=== PATIENT | female | born 1955 | race Caucasian/White ===

== ENCOUNTER 2019-05-26 12:00 | Emergency (ER) | payer BC ==
--- NOTE | 2019-05-26 12:13 | Emergency Department Record ---
History of Present Illness - General Chief Complaint: Arrythmia/Palpitations Stated Complaint: IRREGUALR HEARTBEAT Time Seen by Provider: 05/26/19 12:06 Source: Patient Mode of Arrival: Ambulatory Limitations: No limitations - History of Present Illness Initial Comments: 63 yo female presents with palpitations and irregular heart beat. She first noticed it at 2am. She does feel mild lightheadedness and mild shortness of breath. No syncope. No chest pain. No leg pain or edema. She states about 4 years ago she had atrial fibrillation that converted on its own. She was briefly on Eliquis but stopped when in sinus rhythm and had nose bleeds. She is not currently anti-coagulated. 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 No other recent changes in her health. She drove herself to the ED MD Complaint: Atrial fibrillation, Irregular heart beat, Palpitations -: Hour(s) Context: Occurred during rest Arrythmia History: Atrial fibrillation Associated Symptoms: Shortness of breath, Other (lightheaded) - Related Data Home Medications Medication Instructions Recorded Confirmed Last Taken Atenolol 25 mg PO BID 05/26/19 05/26/19 05/26/19 Atomoxetine HCl [Strattera] 10 mg PO DAILY 05/26/19 05/26/19 05/26/19 Bupropion HCl [Wellbutrin Xl] 150 mg PO DAILY 05/26/19 05/26/19 05/26/19 Lisinopril/Hydrochlorothiazide 1 each PO DAILY 05/26/19 05/26/19 05/26/19 [Lisinopril-Hctz 20-12.5 mg Tab] Allergies Allergy/AdvReac Type Severity Reaction Status Date / Time codeine AdvReac VOMITING Verified 05/26/19 12:20 Review of Systems Constitutional: Denies: Chills, Fever, Malaise, Weakness Eyes: Denies: Eye discharge ENT: Denies: Congestion, Throat pain Respiratory: Reports: Dyspnea (mild). Denies: Cough, Hemoptysis, Stridor, Wheezes Cardiovascular: Reports: Palpitations. Denies: Chest pain, Dyspnea on exertion, Edema, Syncope Endocrine: Denies: Fatigue, Polydipsia, Polyuria Gastrointestinal: Denies: Abdominal pain, Diarrhea, Nausea, Vomiting Genitourinary: Denies: Dysuria, Urgency Musculoskeletal: Denies: Arthralgia, Back pain, Joint swelling, Myalgia Skin: Denies: Bruising, Change in color, Rash Neurological: Denies: Abnormal gait, Headache, Numbness, Tingling, Weakness Psychiatric: Denies: Anxiety Hematological/Lymphatic: Denies: Easy bleeding, Easy bruising Physical Exam - General General Appearance: Alert, Oriented x3, Cooperative, No acute distress Limitations: No limitations - Head Head exam: Atraumatic, Normal inspection - Eye Eye exam: Normal appearance, PERRL. negative: Conjunctival injection, Scleral icterus - ENT ENT exam: Normal exam Ear exam: Normal external inspection Nasal Exam: Normal inspection Mouth exam: Normal external inspection - Neck Neck exam: Normal inspection. negative: Lymphadenopathy, Tenderness, Thyromegaly - Respiratory Respiratory exam: Normal lung sounds bilaterally. negative: Chest wall tenderness, Decreased breath sounds, Respiratory distress, Rhonchi, Stridor, W heezes - Cardiovascular Cardiovascular Exam: Irregular rhythm, Tachycardia. negative: Regular rate, Normal rhythm Peripheral Pulses: 2+: Radial (R), Radial (L) - GI/Abdominal GI/Abdominal exam: Soft. negative: Guarding, Tenderness - Rectal Rectal exam: Deferred - exam: Deferred - Extremities Extremities exam: Normal inspection. negative: Pedal edema, Tenderness - Back Back exam: Denies: CVA tenderness (R), CVA tenderness (L) - Neurological Neurological exam: Alert, Normal gait, Oriented X3 - Psychiatric Psychiatric exam: Normal affect, Normal mood - Skin Skin exam: Dry, Intact, Normal color, Warm Course - Reevaluation(s) Reevaluation #1: 05/26/19 12:10 EKG #1: 12:02 Rate: 126 Rhythm: atrial fibrillation with RVR [place]: N Intervals: Qtc 512 ST segments: poor R wave non specific flat T waves Prior: None 05/26/19 12:12 No prior records on the EMR 05/26/19 12:30 While re-interviewing the patient she converted on the monitor. She does not feel any palpitations now EKG #2 ordered. 05/26/19 12:31 EKG #2: Rate: 77 Rhythm: sinus [place]: normal Intervals: normal ST segments: inverted T waves V1-V4 Prior: EKG #1 05/26/19 12:39 05/26/19 12:41 BP improved to 115/85 in NSR. 05/26/19 13:09 The labs were reviewed CBC is normal CMP is normal Troponin is normal P-BNP is elevated at 552 05/26/19 13:35 BP 98/57 With the NS EKG changes, elevated BNP, and marginal BP I will call [facility] for transfer given there is no cardiology at [facility] currently and her care is through [facility]. With EKG changes ASA given as well. 05/26/19 13:37 05/26/19 13:40 CXR was negative 05/26/19 13:57 Dr Emerson accepts the patient at [facility] Medical Decision Making - Lab Data Result diagrams: 05/26/19 12:25 05/26/19 12:25 Disposition Disposition: Transfer Clinical Impression: Atrial fibrillation with RVR Disposition: Acute Care Hospital Transfer Transfer To: [facility] Reason For Transfer: Atrib with RVR Accepting Physician: Idania Time Discussed w/Accepting Physician: 13:56 Condition: (2) Stable Forms: Patient Portal Access Time of Disposition: 13:38 Quality - Quality Measures Quality Measures: N/A - Blood Pressure Screening Does Patient Have Any of the Following: No Blood Pressure Classification: Pre-Hypertensive BP Reading Systolic Measurement: 121 Diastolic Measurement: 75 Screening for High Blood Pressure: < Pre-Hypertensive BP, F/U Documented > [[id number]] Pre-Hypertensive Follow-up Interventions: Referral to alternative/primary care provider.
[2019-05-26] MEDS ORDERED: HEPARIN SODIUM 1000 UNIT/1 ML 10ML VIAL IVP ONE (12:18)
[2019-05-26] MEDS ORDERED: SODIUM CHLORIDE 0.9% 500 ML IV ONE (12:23)
[2019-05-26] MEDS ORDERED: DILTIAZEM HCL 125 MG in 0.9 % SODIUM CHLORIDE 100ML 100 ML IV SCH (12:30)
[2019-05-26] MEDS ORDERED: HEPARIN SODIUM/D5W 25,000 UNITS/500 ML BAG IV SCH (12:30)
[2019-05-26 12:34] LABS: ABSOLUTE NEUTROPHIL COUNT 4.78; BASO % 0.5 % (0-6); EOS % 1.5 % (0-6); GRAN % 58.1 % (47-80); HEMATOCRIT 41.9 % (35.0-47.0); HEMOGLOBIN 14.1 gm/dl (11.6-16.0); LYMPH % 30.7 % (16-45); MEAN CELL VOLUME 93.5 fl (81-97); MEAN CORPUSCULAR HEMOGLOBIN 31.5 pg (27-33); MEAN CORPUSCULAR HGB CONC 33.7 g/dl (32-36); MEAN PLATELET VOLUME 8.2 fl (7.4-10.4); MONO % 9.2 % (0-9); PLATELET COUNT 336 K/uL (130-400); RED BLOOD COUNT 4.48 M/uL (3.80-5.40); RED CELL DISTRIBUTION WIDTH 12.8 % (11.5-14.5); WHITE BLOOD COUNT W/O DIFF 8.2 K/uL (4.2-12.2)
[2019-05-26 12:47] LABS: PARTIAL THROMBOPLASTIN TIME 27.7 SECONDS (24.5-39.1); PROTHROMBIN TIME (PATIENT) 10.1 SECONDS (9.5-12.1)
[2019-05-26 12:48] LABS: BLOOD UREA NITROGEN 12 mg/dL (8-23); CREATININE 0.7 mg/dL (0.5-0.9); EST GLOMERULAR FILTRATION RATE > 60 mL/min
[2019-05-26 12:49] LABS: TOTAL PROTEIN 7.3 g/dL (6.6-8.7)
[2019-05-26 12:51] LABS: GLUCOSE,RANDOM 132 mg/dL (74-109)
[2019-05-26 12:53] LABS: ALT/SGPT 26 U/L (<33)
[2019-05-26 12:54] LABS: ALB/GLOB RATIO 1.7 (1.1-1.8); ALBUMIN 4.6 g/dL (4.0-5.0); ALKALINE PHOSPHATASE 110 U/L (35-104); AST/SGOT 19 U/L (10.0-35.0)
[2019-05-26] MEDS ORDERED: ASPIRIN 81 MG CHEWABLE TABLET PO ONE (13:37)
--- NOTE | 2019-05-29 07:37 | RADIOLOGY REPORT ---
EXAM: CHEST, TWO VIEWS HISTORY: IRREGULAR HEARTBEAT. VERTIGO. TECHNIQUE: Upright PA and lateral views of the chest were obtained. Comparison: None. FINDINGS: The heart is not enlarged. No pulmonary venous hypertension. The thoracic aorta is mildly tortuous and atherosclerotic. No confluent air space opacity is seen nor is there costophrenic angle blunting or pneumothorax. There are degenerative changes scattered throughout the visualized spine. IMPRESSION: NO RADIOGRAPHIC EVIDENCE OF ACUTE CARDIOPULMONARY DISEASE. JOB NUMBER: [id number] MTDD
== END 2019-05-26 15:45 | disposition short-term general hospital (02) ==
LOC: ER 12:00
DX: I48.0 Paroxysmal atrial fibrillation (principal); R42 Dizziness and giddiness; R06.02 Shortness of breath; R79.89 Other specified abnormal findings of blood chemistry; I10 Essential (primary) hypertension
CPT/HCPCS: 71046; 80053; 83880; 84443; 84484; 85025; 85610; 85730; 93005; 93010; 96365; 96366; 96375; 99285